=== PATIENT | female | born 1980 | race African-American/Black ===

== ENCOUNTER 2024-07-05 19:08 | Emergency (ER) | payer OTHER ==
[2024-07-05 19:21] VITALS: BP 147/91; RESP 85; TEMP 97.8; BMI 39.1
[2024-07-05] MEDS ORDERED: LIDOCAINE 5% TOPICAL PATCH ONE (19:36)
[2024-07-05] MEDS: LIDOCAINE 5% TOPICAL PATCH TP ONE (19:37)
[2024-07-05 21:19] LABS: HEMATOCRIT 41.2 % (32.4-45.2); HEMOGLOBIN 12.9 G/dL (10.7-15.3); MCH 23.9 pg (25.7-33.7); MCHC 31.3 g/dl (32.0-36.0); MEAN CELL VOLUME 76.4 fl (80-96); MEAN PLT VOLUME 10.2 fl (7.5-11.1); PLATELET COUNT 254.8 10^3/uL (134-434); RBC 5.39 10^6/uL (3.60-5.2); RDW 17.6 % (11.6-15.6); WHITE BLOOD COUNT 11.7 10^3/uL (4.0-10.8)
[2024-07-05 21:26] LABS: ADD RBC MORPHOLOGY YES
[2024-07-05 21:30] LABS: ALK PHOS 79 U/L (45-117); ANION GAP 8 mmol/L (4-13); BILIRUBIN,TOTAL 0.4 mg/dl (0.2-1); CALCIUM 9.5 mg/dl (8.5-10.1); CHLORIDE 107 mmol/L (98-107); CO2 26 mmol/L (21-32); GLUCOSE,RANDOM 77 mg/dl (74-106); POTASSIUM 3.5 mmol/L (3.5-5.1); SGOT/AST 12 U/L (15-37); SGPT/ALT 19 U/L (7-52); SODIUM 141 mmol/L (136-145); TOT PROT 6.9 g/dl (6.4-8.2)
[2024-07-05] MEDS: LIDOCAINE PATCH REMOVAL MC SCH (21:34)
[2024-07-05 21:47] LABS: ANISOCYTOSIS 1+; OVALOCYTE 1+; PLATELET ESTIMATE ADEQUATE; TARGET CELLS 1+
[2024-07-05] MEDS ORDERED: POTASSIUM CHLORIDE TABS 20 MEQ TABLET.ER (FP) PO ONE (22:11)
[2024-07-05] MEDS: POTASSIUM CHLORIDE TABS 20 MEQ TABLET.ER (FP) PO ONE (22:12)
== END 2024-07-05 22:12 | disposition home or self-care (01) ==
LOC: FER 19:08
DX: M19.90 Unspecified osteoarthritis, unspecified site (principal); M25.512 Pain in left shoulder; M25.522 Pain in left elbow; M79.622 Pain in left upper arm
CPT/HCPCS: 36415; 71045-TC-FY; 73030-TC-LT-FY; 73070-TC-LT-FY; 80053; 84484; 85025; 93005; 93971; 99285-25